=== PATIENT | male | born 1955 | race Caucasian/White ===

== ENCOUNTER 2020-07-23 14:10 | Outpatient (CLI) | payer MEDICARE ==
--- NOTE | 2020-07-23 15:38 | CT ---
EXAM: CT Pulmonary Lung Scan PROVIDED CLINICAL HISTORY: Low-dose lung screening evaluation. Tobacco abuse. Patient states history of smoking 1 pack per day f or 30 years. COMPARISON: None FINDINGS: No discrete pulmonary nodule or mass is seen in the lungs bilaterally. No pleural effusion is identif ied. There are mild emphysematous changes within the upper lobes bilaterally greater on the right. A few m inimal ill-defined patchy densities are seen within the lungs located in the anteromedial aspect of the left upper lobe and along the posteromedial lower lobes bilaterally likely related to areas of at electasis. Airways demonstrate a normal appearance. Lack of intravenous contrast limits evaluation of the mediastinal structures and vasculature. No enla rged lymph nodes are seen by CT size criteria on this nonenhanced CT exam. Mild vascular calcifications are seen in the aortic arch. Visualized upper abdomen demonstrates a grossly normal nonenhanced CT appearance. Multilevel degenerative changes are seen in the spine. There is mild anterolisthesis of C7 on T1 with loss of intervertebral disc space height and endplate degenerative changes at this level. Facet degenerative change are also present at this level. IMPRESSION: 1. Lung RADS category 1-no pulmonary nodule is visualized. Continued annual screening with low-dose C T scan thorax in 12 months is recommended. 2. Multilevel degenerative changes in the spine with slight anterolisthesis of C7 on T1 with prominen t degenerative changes at this level.
== END 2020-07-23 14:11 | disposition home or self-care (01) ==
LOC: BICCT 14:10
PROVIDERS: ATTEND Internal Medicine
DX: Z12.2 Encounter for screening for malignant neoplasm of respiratory organs (principal); F17.210 Nicotine dependence, cigarettes, uncomplicated; M47.813 Spondylosis without myelopathy or radiculopathy, cervicothoracic region; M43.13 Spondylolisthesis, cervicothoracic region
CPT/HCPCS: G0297

== ENCOUNTER 2021-08-04 13:06 | Outpatient (CLI) | payer MEDICARE | END 2021-08-04 13:07 | disposition home or self-care (01) | LOC: BICCT 13:06 | PROVIDERS: ATTEND Internal Medicine | DX: Z12.2 Encounter for screening for malignant neoplasm of respiratory organs (principal); F17.210 Nicotine dependence, cigarettes, uncomplicated; R91.1 Solitary pulmonary nodule | CPT/HCPCS: 71271 ==

== ENCOUNTER 2021-11-12 07:21 | Outpatient (CLI) | payer MEDICARE | END 2021-11-12 07:22 | disposition home or self-care (01) | LOC: BICULT 07:21 | PROVIDERS: ATTEND Internal Medicine | DX: Z12.2 Encounter for screening for malignant neoplasm of respiratory organs (principal); F17.210 Nicotine dependence, cigarettes, uncomplicated; R91.1 Solitary pulmonary nodule; B19.20 Unspecified viral hepatitis C without hepatic coma | CPT/HCPCS: 71271; 76700 ==

== ENCOUNTER 2022-02-08 14:11 | Outpatient (CLI) | payer MEDICARE | END 2022-02-08 14:12 | disposition home or self-care (01) | LOC: BICRAD 14:11 | PROVIDERS: ATTEND Family Medicine | DX: M51.16 Intervertebral disc disorders with radiculopathy, lumbar region (principal); M25.551 Pain in right hip; G89.4 Chronic pain syndrome; M47.26 Other spondylosis with radiculopathy, lumbar region; M16.11 Unilateral primary osteoarthritis, right hip | CPT/HCPCS: 72100 ==

== ENCOUNTER 2022-02-09 14:27 | Outpatient (CLI) | payer MEDICARE | END 2022-02-09 14:28 | disposition home or self-care (01) | LOC: SCSMRI 14:27 | PROVIDERS: ATTEND Family Medicine | DX: M51.16 Intervertebral disc disorders with radiculopathy, lumbar region (principal); G89.4 Chronic pain syndrome; M48.061 Spinal stenosis, lumbar region without neurogenic claudication | CPT/HCPCS: 72148 ==

== ENCOUNTER 2022-04-29 13:55 | Outpatient (CLI) | payer MEDICARE | END 2022-04-29 13:56 | disposition home or self-care (01) | LOC: LABBT 13:55 | PROVIDERS: ATTEND Neurological Surgery | DX: M54.16 Radiculopathy, lumbar region (principal); Z20.822 Contact with and (suspected) exposure to COVID-19 | CPT/HCPCS: 87811 ==

== ENCOUNTER 2022-05-04 07:17 | Day surgery (SDC) | payer MEDICARE ==
[2022-05-02 14:54] VITALS: BMI 23.6
[2022-05-04] MEDS ORDERED: EPINEPHrine 1 MG/ML AMP ONE (08:31)
[2022-05-04] MEDS ORDERED: Bupivacaine PF 0.5% 30 ML VIAL ONE (08:31)
[2022-05-04] MEDS ORDERED: Thrombin 5000 UNITS/5 ML VIAL ONE (08:32)
[2022-05-04] MEDS ORDERED: Sodium Chloride 0.9% 100 ML ONE ×2 (08:43→13:14)
[2022-05-04] MEDS ORDERED: CEFAZOLIN 2 GM VIAL ONE ×2 (08:43→13:14)
[2022-05-04] MEDS ORDERED: Midazolam HCl 2 mg/2 ml Vial ONE (08:48)
[2022-05-04] MEDS ORDERED: Rocuronium Bromide 10 MG/ML (10ML VIAL) ONE (09:09)
[2022-05-04] MEDS ORDERED: PROPOFOL 200 MG/20 ML VIAL ONE (09:09)
[2022-05-04] MEDS ORDERED: Ondansetron PF 4 MG/2 ML Vial ONE (09:09)
[2022-05-04] MEDS ORDERED: Dexamethasone 20 MG/5 ML VIAL ONE (09:09)
[2022-05-04] MEDS ORDERED: Lidocaine 1% PF 5 ML VIAL ONE (09:09)
[2022-05-04] MEDS ORDERED: ePHEDrine 50 MG/ML VIAL ONE (09:09)
[2022-05-04] MEDS ORDERED: Phenylephrine 10 MG/ML VIAL ONE (09:09)
[2022-05-04] MEDS ORDERED: Glycopyrrolate 0.2 MG/ML 5 ML SYRINGE ONE (09:09)
[2022-05-04] MEDS ORDERED: Ketorolac Tromethamine 30 MG/ML VIAL ONE (09:09)
[2022-05-04] MEDS ORDERED: fentaNYL Citrate/PF 100 MCG/2 ML SYRINGE ONE ×3 (09:11→10:52)
[2022-05-04] MEDS ORDERED: Tamsulosin HCl 0.4 MG CAP ONE (10:57)
[2022-05-04] MEDS ORDERED: HYDROcodone/Acetaminophen 5/325 mg Tablet ONE (12:00)
== END 2022-05-04 14:04 | disposition home or self-care (01) ==
LOC: SDC 07:17
PROVIDERS: ATTEND Neurological Surgery
PROC: 01NB0ZZ Release Lumbar Nerve, Open Approach (ICD-10-PCS; principal; 2022-05-04)
DX: M54.16 Radiculopathy, lumbar region (principal); M48.061 Spinal stenosis, lumbar region without neurogenic claudication; M48.07 Spinal stenosis, lumbosacral region
CPT/HCPCS: 76000; J0171; J0690; J1100; J1885; J2250; J2370; J2405; J2704; J2710; J3490; S0020

== ENCOUNTER 2022-12-08 14:00 | Outpatient (CLI) | payer MEDICARE | END 2022-12-08 14:01 | disposition home or self-care (01) | LOC: BICCT 14:00 | PROVIDERS: ATTEND Internal Medicine | DX: Z12.2 Encounter for screening for malignant neoplasm of respiratory organs (principal); F17.210 Nicotine dependence, cigarettes, uncomplicated | CPT/HCPCS: 71271 ==

== ENCOUNTER 2023-02-06 12:58 | Outpatient (CLI) | payer MEDICARE ==
[~2023-02-06 12:58] MED LIST: Magnevist 469MG/ML 20 ML VIAL ONE
== END 2023-02-06 12:59 | disposition home or self-care (01) ==
LOC: TBSIIMAG 12:58
PROVIDERS: ATTEND Student in an Organized Health Care Education/Training Program
DX: M51.16 Intervertebral disc disorders with radiculopathy, lumbar region (principal); M47.816 Spondylosis without myelopathy or radiculopathy, lumbar region; M48.061 Spinal stenosis, lumbar region without neurogenic claudication; M48.07 Spinal stenosis, lumbosacral region; M43.17 Spondylolisthesis, lumbosacral region; Z98.890 Other specified postprocedural states
CPT/HCPCS: 72158; 82565

== ENCOUNTER 2023-03-15 06:25 | Day surgery (SDC) | payer MEDICARE ==
[2023-03-10 13:56] VITALS: BMI 23.6
[2023-03-15] MEDS ORDERED: Midazolam HCl 2 mg/2 ml Vial ONE (06:40)
[2023-03-15] MEDS ORDERED: fentaNYL PF 100 MCG/2 ML SYRINGE ONE (06:41)
[2023-03-15] MEDS ORDERED: Thrombin 5000 UNITS/5 ML VIAL ONE (06:56)
[2023-03-15] MEDS ORDERED: Bupivacaine HCl 0.5%/Epinephrine 1:200,000/PF 30 ml Vial ONE (06:56)
[2023-03-15] MEDS ORDERED: ePHEDrine Sulfate 50 MG/10 ML VIAL ONE (07:00)
[2023-03-15] MEDS ORDERED: Rocuronium Bromide 10 MG/ML (10ML VIAL) ONE (07:00)
[2023-03-15] MEDS ORDERED: Dexamethasone 20 MG/5 ML VIAL ONE (07:00)
[2023-03-15] MEDS ORDERED: Ketorolac Tromethamine 30 MG/ML VIAL ONE (07:00)
[2023-03-15] MEDS ORDERED: PHENYLEPHRINE-NS 100 MCG/ML 10 ML SYRINGE ONE (07:00)
[2023-03-15] MEDS ORDERED: Lidocaine 1% PF 5 ML VIAL ONE (07:00)
[2023-03-15] MEDS ORDERED: Ondansetron PF 4 MG/2 ML Vial ONE (07:00)
[2023-03-15] MEDS ORDERED: PROPOFOL 200 MG/20 ML VIAL ONE (07:00)
[2023-03-15] MEDS ORDERED: Sodium Chloride 0.9% 100 ML ONE ×2 (08:00→12:28)
[2023-03-15] MEDS ORDERED: CEFAZOLIN 2 GM VIAL ONE ×2 (08:00→12:28)
[2023-03-15] MEDS ORDERED: fentaNYL 50 mcg/mL 1 mL Vial ONE ×4 (08:36→11:25)
== END 2023-03-15 13:20 | disposition home or self-care (01) ==
LOC: SDC 06:25
PROVIDERS: ATTEND Neurological Surgery
PROC: 01NB0ZZ Release Lumbar Nerve, Open Approach (ICD-10-PCS; principal; 2023-03-15)
PROC: [UNRECOGNIZED PROCEDURE] (2023-03-15)
PROC: 0SB40ZZ Excision of Lumbosacral Disc, Open Approach (ICD-10-PCS; 2023-03-15)
PROC: 00NY0ZZ Release Lumbar Spinal Cord, Open Approach (ICD-10-PCS; 2023-03-15)
DX: M43.16 Spondylolisthesis, lumbar region (principal); M54.16 Radiculopathy, lumbar region; M48.061 Spinal stenosis, lumbar region without neurogenic claudication; Z90.89 Acquired absence of other organs
CPT/HCPCS: 20931; 20936; 22612; 22840; 63012; C1713 ×3; C1889 ×2; J3010; J1100; J1885; J2250; J2405; J2704; J3490

== ENCOUNTER 2023-04-28 14:55 | Outpatient (CLI) | payer MEDICARE | END 2023-04-28 14:56 | disposition home or self-care (01) | LOC: BICCT 14:55 | PROVIDERS: ATTEND Neurological Surgery | DX: M54.50 Low back pain, unspecified (principal); M47.816 Spondylosis without myelopathy or radiculopathy, lumbar region; Z98.890 Other specified postprocedural states | CPT/HCPCS: 72131 ==

== ENCOUNTER 2024-09-19 13:07 | Outpatient (CLI) | payer MEDICARE | END 2024-09-19 13:08 | disposition home or self-care (01) | LOC: BICCT 13:07 | PROVIDERS: ATTEND Nurse Practitioner | DX: Z12.2 Encounter for screening for malignant neoplasm of respiratory organs (principal); F17.210 Nicotine dependence, cigarettes, uncomplicated | CPT/HCPCS: 71271 ==